=== PATIENT | female | born 1985 | race Caucasian/White ===

== ENCOUNTER 2022-03-14 05:28 | Day surgery (SDC) | payer MEDICAID ==
[2022-03-07 12:59] LABS: CLARITY,URINE CLOUDY (Clear); COLOR,URINE YELLOW (Yellow); GLUCOSE, URINE NEGATIVE (Neg); KETONES,URINE NEGATIVE (Neg); LEUKOCYTE ESTERASE ,URINE NEGATIVE (Neg); NITRITES, URINE NEGATIVE (Neg); OCCULT BLOOD,URINE SMALL (Neg); PH,URINE 7.5 (4.8-8.0); PROTEIN,URINE NEGATIVE (Neg)
[2022-03-07 12:59] LABS: BASOPHILS % (AUTO) 0.4 % (0-1); EOSINOPHILS # (AUTO) 0.2 X10'3 (0-0.9); LYMPHOCYTES # (AUTO) 1.4 X10'3 (1.1-4.8); LYMPHOCYTES % (AUTO) 23.3 % (21-51); MEAN CORPUSCULAR HEMOGLOBIN 30.6 PG (27.0-31.0); MEAN CORPUSCULAR HGB CONC 34.7 g/dL (33.0-36.5); MEAN PLATELET VOLUME 9.9 FL (7.4-10.4); MONOCYTES # (AUTO) 0.5 X10'3 (0-0.9); MONOCYTES % (AUTO) 8.9 % (2-12); NEUTROPHILS # (AUTO) 3.9 X10'3 (1.8-7.7); NEUTROPHILS % (AUTO) 63.4 % (42-75); PRE OP HEMATOCRIT 38.7 % (35.0-45.0); PRE OP HEMOGLOBIN 13.4 g/dL (12.0-16.0); PRE OP PLATELET COUNT 132 X10'3 (140-440); RED CELL DISTRIBUTION WIDTH 13.6 % (11.5-14.5)
[2022-03-07 13:07] LABS: UA COLLECTION TYPE CLN CATCH MIDSTREAM
[2022-03-07 13:08] LABS: SQUAMOUS EPITHELIAL CELL,UR MODERATE /LPF (FEW)
[2022-03-07 13:09] LABS: AMORPHOUS PHOSPHATES 3+
[2022-03-07 13:10] LABS: BACTERIA,URINE FEW /HPF (Neg); RBC,URINE 0-2 /HPF (0-2); WBC,URINE 0-4 /HPF (0-4)
[2022-03-07 13:12] LABS: ALBUMIN 3.7 G/DL (3.4-5.0); ALBUMIN/GLOBULIN RATIO 0.9 (1.1-1.5); ALKALINE PHOSPHATASE 86 IU/L (46-116); BLOOD UREA NITROGEN 10 MG/DL (7-18); BUN/CREATININE RATIO 14.7 (6.6-38.0); CALCIUM 8.9 MG/DL (8.5-10.1); CHLORIDE 105 MMOL/L (99-107); CREATININE 0.68 MG/DL (0.40-0.90); PRE OP ALT 27 U/L (30-65); PRE OP ANION GAP 7 (8-16); PRE OP AST 18 U/L (10-37); PRE OP BILIRUB, TOTAL 0.3 MG/DL (0.0-1.0); PRE OP GLUCOSE 84 MG/DL (70-104); PRE OP POTASSIUM 3.6 MMOL/L (3.4-5.1); PRE OP SODIUM 141 MMOL/L (135-145); TOTAL CARBON DIOXIDE 28.9 MMOL/L (24-32); TOTAL PROTEIN 7.7 G/DL (6.4-8.2); eGFR > 90 ML/MIN
[2022-03-07 13:13] LABS: HCG SERUM QL NEGATIVE
[2022-03-14] VITALS (31 sets, daily range): BP systolic 99–131; BP diastolic 62–82
[~2022-03-14] VITALS: Ht 162.6 cm; Wt 89.4 kg
[~2022-03-14 05:28] MED LIST: ALLERGY PILL; FLUT16SP2 BOTHNARES; ringers solution, lacted 1,000 ML IV SCH
[2022-03-14] MEDS ORDERED: ceFOXitin 2GM-NS 100mL ADDvant 100 ML IV ONE (05:30)
[2022-03-14] MEDS ORDERED: famotidine 20mg tablet PO ONE (05:30)
[2022-03-14] MEDS ORDERED: clindamycin phosphate 40gm vag cream ONE (06:46)
[2022-03-14] MEDS ORDERED: vasoPRESSIN 20 units/ml inj. ONE (06:47)
[2022-03-14] MEDS ORDERED: BUPIVAcaine/PF 2.5 mg/ml (0.25%) 30ml vial ONE (06:47)
[2022-03-14] MEDS ORDERED: neomy sulf/polymyxin B sulf. GU irrigation 1ml amp IR ONE (07:00)
[2022-03-14] MEDS ORDERED: sevoflurane 250ml liquid IH ONE (07:18)
[2022-03-14] MEDS ORDERED: fentaNYL /PF 50mcg/ml 5ml ampule ONE (07:26)
[2022-03-14] MEDS ORDERED: midazolam 1 mg/ML 2ml injection ONE (07:26)
[2022-03-14] MEDS ORDERED: propofol inj 20 ML IV ONE (08:06)
[2022-03-14] MEDS ORDERED: LIDOcaine 2% (20mg/ml) 5ml vial ONE (08:06)
[2022-03-14] MEDS ORDERED: rocuronium 10mg/ml inj IV ONE (08:06)
[2022-03-14] MEDS ORDERED: ondansetron/PF 4mg/2ml inj ONE (08:08)
[2022-03-14] MEDS ORDERED: dexamethasone sod phosphate 4mg/ml inj. ONE (08:08)
[2022-03-14] MEDS ORDERED: ePHEDrine 50MG/ML INJ. ONE (08:08)
[2022-03-14] MEDS ORDERED: glycopyrrolate 0.2mg/ml inj ONE (08:14)
[2022-03-14] MEDS ORDERED: morphine 2 MG/ML inj. syringe IV PRN (08:30)
[2022-03-14] MEDS ORDERED: labetalol 20mg/4ml (5mg/ml) syringe IV PRN (08:30)
[2022-03-14] MEDS ORDERED: hydrALAZINE 20mg/ml inj. IV PRN (08:30)
[2022-03-14] MEDS ORDERED: morphine 4 MG/ML inj SYRINge IV PRN (08:30)
[2022-03-14] MEDS ORDERED: ketorolac trometh. 30mg/ml inj. IV ONE (08:30)
[2022-03-14] MEDS ORDERED: proCHLORperazine 10 MG/2 ml inj IV PRN (08:30)
[2022-03-14] MEDS ORDERED: ondansetron/PF 4mg/2ml inj IV PRN ×2 (08:30→09:50)
[2022-03-14] MEDS ORDERED: meperidine/PF 25mg/ml syringe IV PRN ×2 (08:30)
[2022-03-14] MEDS ORDERED: acetaminophen 1,000mg/100ml IV 100 ML IV PRN (08:30)
[2022-03-14] MEDS ORDERED: ringers solution, lacted 1,000 ML IV SCH (08:30)
[2022-03-14] MEDS ORDERED: neostigmine methylsulfate 1 MG/ML 10ml vial ONE (09:30)
[2022-03-14] MEDS ORDERED: temazepam 15mg capsule PO PRN (09:50)
[2022-03-14] MEDS ORDERED: LORazepam 2 mg/ml vial IV PRN (09:50)
[2022-03-14] MEDS ORDERED: metoclopramide 5 mg/ml inj IV PRN (09:50)
[2022-03-14] MEDS ORDERED: normal saline 500ml IV soln 500 ML IV PRN (09:50)
[2022-03-14] MEDS ORDERED: magnesium hydroxide 30ml (MOM) UD suspension PO PRN (09:50)
[2022-03-14] MEDS ORDERED: diphenhydrAMINE 50 mg/ml inj IV PRN (09:50)
[2022-03-14] MEDS ORDERED: HYDROcodone/acetaminophen 10/325mg tab PO PRN ×2 (09:50)
--- NOTE | 2022-03-14 10:07 | NUR ---
Received from OR via HOSPITAL BED, accompanied by Anesthesiologist DR SIERRA and report given by Anesthesiolgist. PT PRESENSTS WITH PIV 20G LEFT HAND, 3 LAP SITES WITH DURMABOND CDI, SUAZO CATHETER WITH 175 MLS OUTPUT. VSS. Addendum: 03/14/22 at 1030 by Belén Cooper RN, RN Amended: Links added.
[2022-03-14] MEDS: meperidine/PF 25mg/ml syringe IV PRN ×2 (10:33→10:45)
--- NOTE | 2022-03-14 12:57 | NUR ---
Report called to receiving nurse ROSALINE NUNEZ. Transferred via HOPITAL BED TO ROOM 345B. BED IN LOW LOCKED POSITION, CALL LIGHT IN REACH, PT HOOKED UP TO VITALS MACHINE, ROSALINE NUNEZ AT BEDSIDE. TWOPT Belongings BAGS TAKEN TO ROOM 345B. Special Issues communicated to receiving nurse. Addendum: 03/14/22 at 1312 by Belén Cooper RN RN Amended: Links added.
--- NOTE | 2022-03-14 13:19 | NUR ---
Patient arrived on floor at 1300. settled in room, call light given and educated on how to use.
[2022-03-14] MEDS: ringers solution, lacted 1,000 ML IV SCH ×3 (16:24→22:10)
[2022-03-14] MEDS ORDERED: estradiol 0.1mg patch.TDWK TD SCH (17:00)
--- NOTE | 2022-03-14 18:38 | NUR ---
Patient in room [facility]. I have received report from ROSALINE NUNEZ and had the opportunity to ask questions and assume patient care.
--- NOTE | 2022-03-14 18:41 | NUR ---
Problems reprioritized. Patient report given, questions answered & plan of care reviewed with Prudence RN.
[2022-03-14] MEDS: docusate sod 100mg capsule PO SCH (19:59)
[2022-03-14] MEDS: ketorolac trometh. 30mg/ml inj. IV PRN (19:59)
[2022-03-15 02:38] VITALS: BP 98/51
[2022-03-15] MEDS: ringers solution, lacted 1,000 ML IV SCH (05:38)
--- NOTE | 2022-03-15 06:08 | NUR ---
Problems reprioritized. Patient report given, questions answered & plan of care reviewed with MANAV NUNEZ/ ROSALINE NUNEZ.
--- NOTE | 2022-03-15 06:22 | NUR ---
Patient in room [facility]. I have received report from Isabell NUNEZ and had the opportunity to ask questions and assume patient care.
[2022-03-15 06:32] VITALS: BP 106/64
[2022-03-15] MEDS: docusate sod 100mg capsule PO SCH (07:15)
[2022-03-15 08:13] LABS: BASOPHILS % (AUTO) 0.2 % (0-1); EOSINOPHILS % (AUTO) 0 % (0-6); HEMATOCRIT 33.1 % (35.0-45.0); HEMOGLOBIN 11.5 g/dl (12.0-16.0); LYMPHOCYTES # (AUTO) 1.1 X10'3 (1.1-4.8); LYMPHOCYTES % (AUTO) 9.4 % (21-51); MEAN CORPUSCULAR HEMOGLOBIN 30.6 PG (27.0-31.0); MEAN CORPUSCULAR HGB CONC 34.9 g/dL (33.0-36.5); MEAN CORPUSCULAR VOLUME 87.7 FL (78-98); MEAN PLATELET VOLUME 9.7 FL (7.4-10.4); MONOCYTES # (AUTO) 1.1 X10'3 (0-0.9); NEUTROPHILS # (AUTO) 9.8 X10'3 (1.8-7.7); NEUTROPHILS % (AUTO) 81.4 % (42-75); PLATELET COUNT 142 X10'3 (140-440); RED BLOOD COUNT 3.78 X10'6 (4.20-5.60); RED CELL DISTRIBUTION WIDTH 13.8 % (11.5-14.5)
[2022-03-15 08:29] LABS: ANION GAP 8 (8-16); BLOOD UREA NITROGEN 10 MG/DL (7-18); BUN/CREATININE RATIO 13.2 (6.6-38.0); CALCIUM 8.2 MG/DL (8.5-10.1); CHLORIDE 106 MMOL/L (99-107); CREATININE 0.76 MG/DL (0.40-0.90); GLUCOSE 110 MG/DL (70-104); POTASSIUM 3.7 MMOL/L (3.5-5.1); SODIUM 140 MMOL/L (135-145); TOTAL CARBON DIOXIDE 26.1 MMOL/L (24-32); eGFR 85 ML/MIN
[2022-03-15] MEDS: ketorolac trometh. 30mg/ml inj. IV PRN (10:31)
[2022-03-15 12:03] VITALS: BP 107/68
== END 2022-03-15 12:09 | disposition home or self-care (01) ==
LOC: PAS 05:28 → SUR 3N 14:53 → PAS 03-15 12:09
PROVIDERS: ATTEND Obstetrics & Gynecology Obstetrics
DX: N83.8 Other noninflammatory disorders of ovary, fallopian tube and broad ligament (principal); Z15.02 Genetic susceptibility to malignant neoplasm of ovary; D27.1 Benign neoplasm of left ovary; J44.9 Chronic obstructive pulmonary disease, unspecified; D27.0 Benign neoplasm of right ovary; N72 Inflammatory disease of cervix uteri; Z79.899 Other long term (current) drug therapy; Z98.890 Other specified postprocedural states; Z90.49 Acquired absence of other specified parts of digestive tract; Z91.041 Radiographic dye allergy status
CPT/HCPCS: 36415; 58552; 71046; 80048; 80053; 81001; 82948; 84703; 85025; 86885; 86900; 86901; J0131; J0694; J1100; J1885; J2175; J2250; J2270; J2405; J2704; J2710; J3010; J3490; J7030; J7120; Z7506; Z7508; Z7512; A4314; A4615; A4618; A7000; G0378

== ENCOUNTER 2022-07-31 09:24 | Emergency (ER) | payer MEDICAID, SELFPAY ==
[~2022-07-31] VITALS: Ht 162.6 cm; Wt 90.9 kg
[~2022-07-31 09:24] MED LIST changes: -ringers solution, lacted 1,000 ML IV SCH
[2022-07-31] MEDS ORDERED: normal saline 1000ML IV soln IVB ONE (10:45)
[2022-07-31] MEDS ORDERED: famotidine/PF 10 mg/ml inj IV ONE (10:45)
[2022-07-31] MEDS ORDERED: acetaminophen 325mg tablet PO ONE (10:50)
[2022-07-31 11:38] VITALS: BP 128/74
== END 2022-07-31 11:41 | disposition home or self-care (01) ==
LOC: ER 09:24
DX: R51.9 Headache, unspecified (principal); E86.0 Dehydration; Z79.899 Other long term (current) drug therapy
CPT/HCPCS: 96361; 96374; 99283; J3490; J7030

== ENCOUNTER 2024-10-05 13:59 | Emergency (ER) | payer MEDICAID ==
[~2024-10-05] VITALS: Ht 162.6 cm; Wt 93.8 kg
[2024-10-05 14:11] VITALS: TEMP 97.9
--- NOTE | 2024-10-05 14:49 | Physician Documentation ---
History of Present Illness Chief Complaint: Abdominal Pain Stated Complaint: UPPER ABD PAIN/PAIN WHEN SWALLOWING Time Seen by MD: 14:15 Primary Medical Doctor: corky wood [facility] 39-year-old female who presents with three days of epigastric pain worse after eating or drinking, patient reports the pain is very mild but persistent, rates pain �half of 1/10� at rest and becoming 1/10 pain after eating. Patient reports no fever, chills, nausea, vomiting, or diarrhea. Patient additionally reports history of fatty liver disease and a cholecystectomy in 2007. Medication Reconciliation Allergies: Uncoded Allergies: FRESH CILANTRO (Allergy, Unknown, RESTRICTED BREATHING, 03/07/22) IV CONSTRAST (Allergy, Unknown, HIVES, 03/07/22) Scheduled Fluticasone Propionate (Flonase), 2 SPRAYS BOTHNARES DAILY, (Reported) Omeprazole (Prilosec), 1 CAP PO DAILY Miscellaneous Medications [Allergy Pill], (Reported) Past Medical History Past Medical History: No Pertinent History Past Surgical History: no surgical history Alcohol Use: Rarely Drug Use: none Lives with: Spouse Lives In: Home Review of Systems ROS Epigastric pain as stated above in the HPI, otherwise all systems are reviewed and negative. Physical Exam Vital Signs: Temperature: 97.9, Source: Temporal, Heart Rate: 78, Respiratory Rate: 18, BP: 133/85, Pulse Oximetry: 98, Weight: 93.750 Physical Exam VITALS: Reviewed and as above. GENERAL: Alert, nontoxic appearing, no apparent distress. RESPIRATORY: No increased work of breathing, no respiratory distress, speaking in full clear sentences, lung sounds clear in all waller CV: Regular rate and rhythm no murmur GI: Nondistended, nontender to palpation, no rebound, no guarding, no ecchymosis Progress Results/Orders Results/Orders Orders - HILLARY VICENTE STRUCTURES TECHNICIAN Urinalysis, Cult If Indicated (10/05/24 14:21) Hcg, Ur Ql (10/05/24 14:21) Cbc/Diff (10/05/24 14:21) BMP (10/05/24 14:21) Lipase (10/05/24 14:21) CMP (10/05/24 14:21) Straight Cath For Urine Sample (10/05/24 14:21) Vital Signs 10/05/24 14:11 Temp 97.9 Pulse 78 Resp 18 B/P (MAP) 133/85 Pulse Ox 98 Medical Decision Making Findings This 39-year-old female presented with three days of epigastric pain worse after eating or drinking, patient reporting the pain is very mild but persistent. It was reassuring patient did not report pain as severe and there was no tenderness to palpation on exam therefore further imaging not indicated. Patient was medicated with a �GI cocktail� reporting significant improvement in symptoms. As patient has good follow up with outpatient primary care and will be to discharge her on a PPI until she can follow up with her primary care provider for further evaluation of mild epigastric pain. Remainder of physical exam was benign vital signs able. Patient appropriate for outpatient follow up. Differential Dx:Considerations: Include: Appendicitis, Bowel obstruction, Cholangitis, Cholelithasis, Constipation, Esophagitis, Gastritis/PUD, Gastroenteritis, Inflammatory BD, Pancreatitis Departure Time of Disposition: 15:52 Disposition: HOME / SELF CARE / HOMELESS Impression: Primary Impression: Abdominal pain Qualified Codes: R10.13 - Epigastric pain Condition: Improved Discharge Instructions: Peptic Ulcer, [id number], Abdominal Pain (Nonspecific) Additional Instructions: While a definitive cause of your abdominal pain was not determined stay it was very reassuring that your pain was non severe in nature improved after treatment with the antacid medications, you will require follow up with your primary care provider for further workup in the meantime I have prescribed you a acid reducing medication that you will take daily. Please follow up with your primary care provider in the next few days. Please return to the emergency department for any new or worsening concerning symptoms including but not limited to vomiting, diarrhea, bloody stools, or worsening abdominal pain. Referrals: NO PRIMARY CARE PROVIDER (PCP) Prescriptions Omeprazole (Prilosec) 40 Mg Capsule 1 CAP PO DAILY for 30 Days, #30 CAP Prov: HILLARY VICENTE 10/05/24 Education Educated: Patient Educated regarding: diagnosis, treatment, prognosis, need for follow up Signature Scribe Signature: No scribe Attestation: The note accurately reflects work and decisions made by me.ARMANDO Koo 10/06/24 03:24 HILLARY VICENTE October 05, 2024 14:49
[2024-10-05] MEDS ORDERED: famotidine 10mg tablet PO ONE (15:05)
[2024-10-05 15:07] LABS: URINE HCG NEGATIVE (NEG)
[2024-10-05 15:08] LABS: BILIRUBIN,URINE NEGATIVE (Neg); CLARITY,URINE SLIGHTLY CLOUDY (Clear); COLOR,URINE YELLOW (Yellow); GLUCOSE, URINE NEGATIVE (Neg); KETONES,URINE NEGATIVE (Neg); LEUKOCYTE ESTERASE ,URINE NEGATIVE (Neg); NITRITES, URINE NEGATIVE (Neg); OCCULT BLOOD,URINE NEGATIVE (Neg); PH,URINE 6.5 (4.8-8.0); PROTEIN,URINE NEGATIVE (Neg); UROBILINOGEN,URINE 0.2 E.U/dL (0.2-1.0)
[2024-10-05 15:09] LABS: UA COLLECTION TYPE URINAL
[2024-10-05 15:11] LABS: BASOPHILS % (AUTO) 0.5 % (0-1); EOSINOPHILS # (AUTO) 0.4 X10'3 (0-0.9); EOSINOPHILS % (AUTO) 5.2 % (0-6); HEMATOCRIT 40.5 % (35.0-45.0); LYMPHOCYTES # (AUTO) 1.8 X10'3 (1.1-4.8); LYMPHOCYTES % (AUTO) 24.3 % (21-51); MEAN CORPUSCULAR HGB CONC 34.6 g/dL (33.0-36.5); MEAN CORPUSCULAR VOLUME 83.8 FL (78-98); MEAN PLATELET VOLUME 9.7 FL (7.4-10.4); MONOCYTES # (AUTO) 0.7 X10'3 (0-0.9); MONOCYTES % (AUTO) 9.2 % (2-12); NEUTROPHILS # (AUTO) 4.4 X10'3 (1.8-7.7); NEUTROPHILS % (AUTO) 60.8 % (42-75); PLATELET COUNT 160 X10'3 (140-440); RED BLOOD COUNT 4.83 X10'6 (4.20-5.60); RED CELL DISTRIBUTION WIDTH 13.9 % (11.5-14.5); WHITE BLOOD COUNT 7.3 X10'3 (4.5-11.0)
[2024-10-05 15:22] LABS: SQUAMOUS EPITHELIAL CELL,UR MODERATE /LPF (FEW)
[2024-10-05] MEDS: mag hydrox/Alum hydrox/simeth 30ml oral suspension PO ONE (15:22)
[2024-10-05] MEDS: LIDOcaine 2% Viscous 15ml cup MM ONE (15:22)
[2024-10-05] MEDS: sucralfate 1 gm tablet PO ONE (15:22)
[2024-10-05] MEDS: famotidine 20mg tablet PO ONE (15:22)
[2024-10-05 15:23] LABS: ALANINE AMINOTRANSFERASE 40 U/L (12-78); ALBUMIN 3.9 G/DL (3.4-5.0); ALBUMIN/GLOBULIN RATIO 1.1 (1.1-1.5); ALKALINE PHOSPHATASE 135 IU/L (46-116); ANION GAP 9 (8-16); ASPARTATE AMINO TRANSFERASE 22 U/L (10-37); BILIRUBIN,TOTAL 0.4 MG/DL (0.1-1.0); BLOOD UREA NITROGEN 13 MG/DL (7-18); BUN/CREATININE RATIO 20.6 (10.0-20.0); CALCIUM 8.8 MG/DL (8.5-10.1); CHLORIDE 104 MMOL/L (99-107); CREATININE 0.63 MG/DL (0.40-0.90); GLUCOSE 101 MG/DL (70-104); LIPASE 35 U/L (16-77); POTASSIUM 3.4 MMOL/L (3.5-5.1); SODIUM 141 MMOL/L (135-145); TOTAL CARBON DIOXIDE 27.9 MMOL/L (24-32); TOTAL PROTEIN 7.6 G/DL (6.4-8.2); eCRCL 103 ML/MIN; eGFR > 90 ML/MIN
[2024-10-05 15:23] LABS: BACTERIA,URINE 1+ /HPF (Neg); WBC,URINE 0-4 /HPF (0-4)
[2024-10-05 15:24] LABS: RBC,URINE NONE SEEN /HPF (0-2)
[2024-10-05 15:33] LABS: AMORPHOUS PHOSPHATES 2+
[2024-10-05] MEDS ORDERED: OMEP40CA21 PO (15:53)
[2024-10-05 16:26] VITALS: BP 138/88; PULSE 70; RESP 15; O2SAT 99
== END 2024-10-05 16:27 | disposition home or self-care (01) ==
LOC: ER 14:00
DX: R10.13 Epigastric pain (principal)
CPT/HCPCS: 36415; 80053; 81001; 81025; 83690; 85025; 99284